=== PATIENT | male | born 1985 | race Two or more races ===

== ENCOUNTER 2023-11-24 18:31 | Emergency (ER) | payer OTHER ==
[~2023-11-24] VITALS: Ht 162.6 cm; Wt 84.0 kg
[2023-11-24 18:43] VITALS: BP 126/78; PULSE 82; RESP 18; O2SAT 100
[2023-11-24 19:04] LABS: Basophils # (auto) 0 10 ^3/uL (0-0.2); Basophils % (auto) 0.7 % (0.0-2.0); Eosinophils # (auto) 0.1 10 ^3/uL (0-0.8); Mean Corpuscular Volume 78.6 fL (80.0-100.0)
[2023-11-24 19:08] LABS: Eosinophils % (auto) 1.6 % (0.0-7.0); Hematocrit 48.9 % (41.0-53.0); Hemoglobin 16.5 g/dL (13.5-17.5); Lymphocytes # (auto) 2.1 10 ^3/uL (0.4-5.4); Lymphocytes % (auto) 31.8 % (10.0-50.0); Mean Corpuscular Hemoglobin 26.5 pg (28.0-32.0); Mean Corpuscular Hgb Conc. 33.7 g/dL (32.0-36.0); Monocytes % (auto) 15.5 % (0.0-12.0); Neutrophils # (auto) 3.3 10 ^3/uL (1.6-8.6); Neutrophils % (auto) 50.4 % (37.0-80.0); Nucleated Red Blood Cells % 0.2 %; Red Blood Cells 6.23 10^6/uL (4.5-5.90); Red Cell Distribution Width 13.8 % (11.8-14.3); White Blood Cell 6.5 10^3/uL (4.4-10.8)
[2023-11-24 19:19] LABS: INR 1.06 (0.9-1.15); Partial Thromboplastin Time 31.4 SEC (24.5-34.5); Prothrombin Time 11.1 sec (9.3-11.8)
[2023-11-24 19:28] LABS: Alanine Aminotransferase 77 U/L (7-40); Albumin 4.7 g/dL (3.2-4.8); Alkaline Phosphatase 109 U/L (46-116); Anion Gap 11 (5-15); Aspartate Aminotransferase 34 U/L (13-40); BUN/Creatinine Ratio 12.2 (10.0-20.0); Bilirubin, Total 0.7 mg/dL (0.2-1.0); Blood Urea Nitrogen 12 mg/dL (9-23); Calcium 8.9 mg/dL (8.7-10.4); Carbon Dioxide 24 mmol/L (20-30); Chloride 100 mmol/L (98-107); Glucose 111 mg/dL (74-106); Magnesium 1.8 mg/dL (1.6-2.6); Potassium 3.5 mmol/L (3.5-5.1); Sodium 135 mmol/L (136-145); Total Protein 7.3 g/dL (5.7-8.2)
== END 2023-11-24 19:19 | disposition left against medical advice (07) ==
LOC: ER 18:31
DX: R05.9 Cough, unspecified (principal); M79.10 Myalgia, unspecified site; R07.89 Other chest pain; R06.02 Shortness of breath; Z79.899 Other long term (current) drug therapy; Z53.21 Procedure and treatment not carried out due to patient leaving prior to being seen by health care provider
CPT/HCPCS: 36415; 80053; 83735; 83880; 84484; 85025; 85610; 85730; 93005